=== PATIENT | female | born 1985 | race Caucasian/White ===

== ENCOUNTER 2025-02-18 10:19 | Emergency (ER) | payer MEDICAID, SELFPAY ==
[2025-02-18 10:31] VITALS: BP 132/84; PULSE 111; RESP 18; TEMP 37.1; O2SAT 94
[2025-02-18 10:32] VITALS: PULSE 112; RESP 18; O2SAT 97; BMI 34.0
--- NOTE | 2025-02-18 10:32 | EKG_ITS ---
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
--- NOTE | 2025-02-18 10:40 | PC.NURSE ---
upon pt assessment multiple bruises noted to multiple area from the body. pt stated I bump and fall into alot of things happens all the time.
[2025-02-18 10:47] VITALS: BP 130/97; PULSE 117; RESP 15; TEMP 36.9; O2SAT 98
--- NOTE | 2025-02-18 10:55 | PD.EDSEIZ ---
ED Seizures RME/HPI General Chief Complaint: Seizure Stated Complaint: SEIZURE Time Seen by Provider: 02/18/25 10:52 Arrival date/time: 02/18/25 10:19 Limitations: no limitations RME / HPI RME / HPI Narrative: 39 year old female with history of seizures, spinal cord injury?, neuropathy presents to the ED BIBA from home for evaluation of seizure. Per medics report, patient had a seizure witnessed by family, described as tonic clonic with unknown duration. States she doesn't recall what occurred. Denies feeling sick in any way. Prehospital BS 101. Related Data Home Medications ?Medication ?Instructions ?Recorded ?Confirmed cyclobenzaprine 10 mg tablet 10 mg PO TID PRN Muscle Pain 10/15/18 10/15/18 hydrocodone 10 mg-acetaminophen 1 tab PO DAILY 10/15/18 10/15/18 325 mg tablet ([place]) meloxicam 7.5 mg tablet 7.5 mg PO QDAY 10/15/18 10/15/18 pregabalin 75 mg capsule (Lyrica) 75 mg PO BID 10/15/18 10/15/18 Previous Rx's ?Medication ?Instructions ?Recorded acetaminophen 500 mg tablet 500 mg PO Q4H PRN pain #20 tabs 10/15/18 cephalexin 500 mg capsule (Keflex) 500 mg PO Q12H #14 caps 10/15/18 hydrocodone 10 mg-acetaminophen 1 tab PO BID PRN pain #14 tabs 02/18/25 325 mg tablet Allergies Allergy/AdvReac Type Severity Reaction Status Date / Time No Known Allergies Allergy Verified 10/15/18 22:25 Review of Systems Review of Systems Systems Reviewed: All systems reviewed, normal except as documented Past Medical History Past Medical History NEUROLOGIC: Positive Peripheral Neuropathy CARDIAC: Negative Congestive Heart Failure RESPIRATORY: Negative Chronic Obstructive Pulmonary Disease (COPD) GENITOURINARY: Negative Renal Disease MUSCULOSKELETAL: Positive Arthritis ENDOCRINE: Negative Diabetes Mellitus Type 1 or Diabetes Mellitus Type 2 Social History SMOKING STATUS: Never smoker ED Exam General Limitations: Present no limitations General appearance: Present alert (somewhat slow to respond to questioning tremulous ) and in no apparent distress Head Head exam: Present atraumatic, normocephalic and normal inspection Eye Eye exam: Present normal appearance, PERRL and EOMI ENT ENT exam: Present normal exam, normal oropharynx and mucous membranes moist Neck Neck exam: Present normal inspection, full ROM and trachea midline Chest Chest inspection: Present normal inspection and symmetric chest wall rise Respiratory Respiratory exam: Present normal lung sounds bilaterally Cardiovascular Cardiovascular exam: Present regular rate, normal rhythm and normal heart sounds Abdominal Exam Abdominal exam: Present soft and normal bowel sounds Extremities Exam Extremities exam: Present normal inspection and full ROM Back Exam Back exam: Present normal inspection and full ROM Neurological Exam Neurological exam: Present alert, oriented X3, CN II-XII intact and other (somewhat slow to respond to questioning, tremulous ) Psychiatric Psychiatric exam: Present normal affect and normal mood Skin Skin exam: Present warm, dry, intact and normal color Course Quality Measures none Orders Category Date Time Status 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 Care 02/18/25 12:13 Completed EKG (ED ONLY) *Do not use* NOW Care 02/18/25 10:32 Completed EKG (ED Only) Stat Exams 02/18/25 10:32 Draft Alcohol, Blood Medical Stat Lab 02/18/25 11:27 Completed BMP [Basic Metabolic Panel] Stat Lab 02/18/25 11:27 Completed CBC Stat Lab 02/18/25 11:27 Completed Drug Screen,Urine Stat Lab 02/18/25 11:55 Completed HYDROcodone/APAP 10/325 [[place] 10/325] Med 02/18/25 12:13 Discontinued 1 tab PO X1 ONE Vital Signs Vital signs: Vital Signs Temperature 98.7 F 02/18/25 10:31 Pulse Rate 111 H 02/18/25 10:31 Respiratory Rate 18 02/18/25 10:31 Blood Pressure 132/84 H 02/18/25 10:31 Pulse Oximetry (%) 94 L 02/18/25 10:31 Oxygen Delivery Method Room Air 02/18/25 10:31 Seizure MDM Narrative MDM Narrative:: Patient remained stable condition throughout the entire ER stay. I interpreted all labs. Patient has been off of her hydrocodone for days and she has been on it for years. I had a long discussion with the patient about the possibility of her being placed on Suboxone since she is already apparently withdrawing from opiates. She is thoroughly and totally against that. She wishes to continue to take her hydrocodone. Here in the emergency room she was given 10 mg of hydrocodone. At the patient's 's request administrator social welfare consult was obtained to give him options on how best to help treat the patient at home. Patient will be discharged on 1 weeks worth of hydrocodone to be used as prescribed to give her time to see her primary care physician. Again, the patient was thoroughly against and refused being placed on Suboxone. Patient data External records reviewed:: [facility] previous records Clinical information provided by:: patient and spouse Social determinants that could affect healthcare access:: none How is presenting disease/condition affected by chronic disease/condition?: no chronic disease Evaluation data The following diagnostics were reviewed and interpreted by me:: lab results Lab and/or radiology exams considered but not ordered:: None Interpretation Summary: None Medications / Prescriptions Medications or Prescriptions considered but not ordered:: None Medication administrations:: Medication Administration History Discontinued Medications Hydrocodone Bitart/Acetaminophen (Hydrocodone/Apap 10/325 Tab) 1 tab PO X1 ONE Stop: 02/18/25 12:14 Last Admin: 02/18/25 12:21 Dose: 1 tab Documented By: MM Consultations Consultation(s) initiated? (list below): No Diagnosis Seizure Differential Diagnosis: generalized seizure Most likely diagnosis given after review of the tests above:: Opioid withdrawal Admission Indicated Admission indicated?: not indicated Admission Request Was there a request for admission?: No Disposition Plan Disposition Plan: Discharge Discharge Attestation Discharge Attestation: The patient and all family members were given an opportunity to ask questions and understood the discharge instructions. Discharge instructions specifically effects, indications for sooner follow up or return to the emergency department, and the expected course of current diagnosis. Patient condition: Stable Discharge Plan Plan Patient Disposition: HOME (Self Care) Prescriptions/Referrals Prescriptions/Med Rec: New hydrocodone-acetaminophen 10-325 mg tablet 1 tab PO BID MDD 2 PRN (Reason: pain) Qty: 14 0RF No Action cephalexin [Keflex] 500 mg capsule 500 mg PO Q12H Qty: 14 0RF acetaminophen 500 mg tablet 500 mg PO Q4H PRN (Reason: pain) Qty: 20 0RF cyclobenzaprine 10 mg Tablet 10 mg PO TID PRN (Reason: Muscle Pain) hydrocodone-acetaminophen [[place]] 10-325 mg Tablet 1 tab PO DAILY meloxicam 7.5 mg Tablet 7.5 mg PO QDAY Lyrica 75 mg Capsule 75 mg PO BID Referrals: Steve Sands [Primary Care Provider] - In 1 week Problem List Clinical Impression: Opioid abuse with withdrawal Patient/Caregiver Discharge Instructions Additional Instructions: You must follow-up with your primary care physician for any further administration of opioids. Print Language: Citizen Of [place] Stand Alone Forms: [employer] Award Info., Patient Portal Info Letter
[2025-02-18 11:43] LABS: Basophils # (Auto) 0.0 Thou/mm3 (0.0-0.2); Basophils % (Auto) 0 % (0-2.5); Eosinophils # (Auto) 0.0 Thou/mm3 (0.0-0.5); Eosinophils % (Auto) 0 % (0-10); Hematocrit 36.6 % (36.0-46.0); Hemoglobin 13.0 g/dL (12.0-16.0); Immature Granulocytes Auto 0.04 Thou/mm3 (0.00-0.00); Lymphocytes # (Auto) 1.1 Thou/mm3 (1.0-4.8); Lymphocytes % (Auto) 9 % (10-50); Mean Corpuscular HGB Conc 35.5 g/dl (31.0-37.0); Mean Corpuscular Hemoglobin 31.3 pg (25.0-35.0); Mean Corpuscular Volume 88 fL (80-100); Monocytes # (Auto) 0.7 Thou/mm3 (0.0-0.8); Monocytes % (Auto) 5 % (0-12); Neutrophils # (Auto) 11.0 Thou/mm3 (1.8-7.7); Neutrophils % (Auto) 85 % (37-80); Nucleated Red Blood Cell # 0.00 Thou/mm3 (0.00-0.00); Nucleated Red Blood Cell % 0 /100 WBC (0); Platelet Count 195 Thou/mm3 (140-440); RDW Standard Deviation 42.5 fL (36.4-46.3); Red Blood Count 4.16 Miln/mm3 (4.00-5.20); White Blood Count 12.8 Thou/mm3 (3.6-11.0)
[2025-02-18 11:57] LABS: Alcohol, Blood Medical < 3.0 mg/dL (0-10.0); Anion Gap 11 (7-16); BUN/Creatinine Ratio 22 Ratio (12-20); Blood Urea Nitrogen 13 mg/dL (9-23); Calcium 8.9 mg/dL (8.3-10.6); Carbon Dioxide 25.1 mMol/L (20.0-31.0); Chloride 104 mMol/L (98-107); Creatinine (Component) 0.6 mg/dL (0.6-1.3); Estimated Creatinine Clearance 128.1 mL/min (>60); Glucose 79 mg/dL (74-106); Osmolality,Calculated 278 (275-295); Potassium 3.7 mMol/L (3.4-5.1); Sodium 140 mMol/L (136-145); eGFR > 60 See Note
[2025-02-18 11:59] VITALS: BP 147/106; PULSE 106; RESP 16; TEMP 37.1; O2SAT 100
[2025-02-18 12:00] VITALS: BP 148/105; PULSE 100; RESP 17; TEMP 37.1; O2SAT 100
[2025-02-18 12:28] LABS: Amphetamine/Methamp Scrn,U Negative (Negative); Barbiturate Screen,Urine Negative (Negative); Benzodiazepines Screen,Urine Negative (Negative); Benzoylecgonine Screen, Ur Positive (Negative); Fentanyl Screen,Urine Negative (Negative); Opiate Screen,Urine Negative (Negative); THC Screen,Urine Negative (Negative)
--- NOTE | 2025-02-18 12:51 | PC.CC ---
ASW was informed by ER provider that he would like SS to speak with the pts spouse about rehab services. ASW attempted to call the pts spouse, but he was not able to speak at that moment. The pts spouse stated he would come to the ER in about 45 minutes and wanted to speak to copy writer caut rehab services for the pt.
== END 2025-02-18 14:08 | disposition home or self-care (01) ==
PROVIDERS: Emergency Provider Emergency Medicine; PCP Family Medicine
DX: F11.13 Opioid abuse with withdrawal (principal); R94.31 Abnormal electrocardiogram [ECG] [EKG]
CPT/HCPCS: 36415; 80048; 80307; 80320; 85025; 93005; 99283; A9270; G0480